=== PATIENT | female | born 1945 | race Caucasian/White ===

== ENCOUNTER → 2023-06-26 10:33 | Day surgery (SDC) | payer MEDICARE, OTHER, SELFPAY ==
--- NOTE | 2023-06-26 14:39 | ITS.CL.CARDI ---
Cosmetic Sales Consultant - Cardioversion
Cardioversion
Procedure Report:
CARDIOVERSION REPORT
DATE: June 26, 2023
Primary Care Provider: MALATHI Steve
Primary economics department chair: Dr Elsa Guajardo
INDICATION: Atrial Fibrillation
ANTICOAGULATION: apixaban
ANESTHESIA:
Deep sedation was administered (Propofol) and monitored via the Anesthesia department.
CARDIOVERSION:
Once sedation was determined to be adequate, a biphasic shock was delivered with external pads placed in an A-P position.
Attempt # 1: 200 J Results: Failed to restore sinus rhythm
Attempt # 2: 360 J Results: Failed to restore sinus rhythm
* Attempt # 3: 360 J Results: SR at a HR of 60 bpm.
*(with external chest pressure)
COMPLICATIONS: None
CONCLUSION: Successful cardioversion of atrial fibrillation to sinus rhythm.
RECOMMENDATION:
Maintain uninterrupted oral anticoagulation
Copy to:
MALATHI Steve
Dr Elsa Guajardo
== END ==
LOC: CATH 10:33
PROVIDERS: ATTENDING PHYSICIAN Nuclear Medicine Nuclear Cardiology; FAMILY PHYSICIAN Nurse Practitioner
DX: I48.0 Paroxysmal atrial fibrillation (principal); I10 Essential (primary) hypertension; E78.5 Hyperlipidemia, unspecified; Z85.3 Personal history of malignant neoplasm of breast; Z79.01 Long term (current) use of anticoagulants
CPT/HCPCS: 92960; 93005

== ENCOUNTER → 2023-07-10 12:12 | Outpatient (REF) | payer MEDICARE, OTHER, SELFPAY | LOC: HWRAD 12:12 | PROVIDERS: ATTENDING PHYSICIAN Nurse Practitioner | DX: R05.9 Cough, unspecified (principal) | CPT/HCPCS: 71046 ==

== ENCOUNTER → 2023-07-31 09:40 | Outpatient (REF) | payer MEDICARE, OTHER, SELFPAY ==
[2023-07-31 11:42] LABS: % Basophils 0.8 % (0-2); % Eosinophils 2.8 % (0-6); % Immature Granulocytes 0.2 % (0-0.5); % Lymphocytes 31.7 % (20.5-51.1); % Monocytes 8.6 % (1.7-9.3); % Neutrophils 55.9 % (42.2-75.2); Absolute Eosinophils 0.1 10^3/uL (0-0.7); Absolute Lymphocytes 1.6 10^3/uL (1.2-3.4); Absolute Monocytes 0.4 10^3/uL (0.1-0.6); Absolute Neutrophils 2.8 10^3/uL (1.4-6.5); Hematocrit 39.2 % (37.0-47.0); Hemoglobin 12.7 g/dL (12.0-16.0); Mean Corp Hgb Conc. 32.4 g/dL (33.0-37.0); Mean Corpuscular Hgb 27.5 pg (27.0-31.0); Mean Platelet Volume 9.9 fL (7.4-10.4); Nucleated Red Blood Cells % 0 %; Platelet Count 275 10^3/uL (130-400); Red Blood Cell Count 4.61 10^6/uL (4.20-5.40)
[2023-07-31 12:06] LABS: ALT (SGPT) 14 U/L (0-35); AST (SGOT) 22 U/L (14-36); Albumin 3.7 g/dl (3.5-5.0); Alkaline Phosphatase 115 U/L (38-126); Blood Urea Nitrogen 16 mg/dl (7-17); Calcium 9.6 mg/dl (8.4-10.2); Carbon Dioxide 26 mmol/L (22-30); Chloride 107 mmol/L (98-107); Glucose 97 mg/dl (70-99); Potassium 3.6 mmol/L (3.5-5.1); Sodium 139 mmol/L (135-145); Total Bilirubin 0.4 mg/dl (0.2-1.3); Total Protein 6.5 g/dl (6.3-8.2); eGFR 56.95
[2023-07-31 12:37] LABS: TSH Reflex To Free T4 2.22 uIU/ml (0.47-4.68)
[2023-07-31 15:17] LABS: Urine Albumin Trace (Neg - Trace); Urine Bilirubin Negative (Negative); Urine Character Clear (Clear); Urine Color Yellow; Urine Glucose Negative (Negative); Urine Ketone Negative (Negative); Urine Leukocyte 2+ (Negative); Urine Nitrite Negative (Negative); Urine Occult Blood 4+ (Negative); Urine Specific Gravity 1.005 (<1.030); Urine Urobilinogen Negative (Neg - 1+); Urine pH 6.5 (5.0-9.0)
[2023-07-31 15:23] LABS: Urine Bacteria Few (Negative); Urine Red Blood Cell 16-20 /HPF (0-2)
== END ==
LOC: HWLAB 09:40
PROVIDERS: ATTENDING PHYSICIAN Nurse Practitioner
DX: R41.3 Other amnesia (principal); R53.83 Other fatigue; R61 Generalized hyperhidrosis
CPT/HCPCS: 36415; 80053; 81003; 81015; 84443; 85025; 87077; 87086; 87186

== ENCOUNTER 2023-08-14 18:12 | Emergency (ER) | payer MEDICARE, OTHER, SELFPAY ==
[2023-08-14 18:12] VITALS: BMI 21.0
[2023-08-14 18:19] VITALS: BP 111/85
[2023-08-14 18:35] LABS: Urine Albumin Trace (Neg - Trace); Urine Bilirubin Negative (Negative); Urine Character Slightly Cloudy (Clear); Urine Color Yellow; Urine Glucose Negative (Negative); Urine Ketone 1+ (Negative); Urine Leukocyte 2+ (Negative); Urine Nitrite Negative (Negative); Urine Occult Blood 4+ (Negative); Urine Specific Gravity 1.015 (<1.030); Urine Urobilinogen Negative (Neg - 1+)
[2023-08-14 18:44] LABS: Urine Bacteria Moderate (Negative); Urine Red Blood Cell 50-60 /HPF (0-2)
--- NOTE | 2023-08-14 19:10 | ED.GENMED ---
History of Present Illness
General
Chief Complaint: Urinary Symptoms
Source: patient
Exam Limitations: none
Time Seen by Provider: 08/14/23 18:55
Travel History
Have you had any contact with someone who has COVID-19?: No
Do you have any symptoms of coronavirus? Fever > 100 degrees, chills, cough, shortness of breath, sore throat, loss of taste or smell, muscle aches, or headache?: No
History of Present Illness
History of Present Illness:
See MDM
Past History
Past History
ED Past Medical History: Arrthythmia (SVT, Atrial fib), Cancer, HTN, Hypercholesterolemia, Other (Kidney stones, degenerative joint disease, breast cancer treated with lumpectomy and radiation, hepatitis B, TIA) and Other ( PFO, glaucoma,
cataracts, vertigo)
ED Past Surgical History: Other
Social History
Tobacco: Non-smoker
Alcohol: Occasional
Drug: None
Personal: Partner ( male partner for 20+ years)
Living: with family
Employment: Retired
Phy Exam
Physical Exam
Physical Exam:
See MDM
Course
Orders/Labs/Results
Orders:
Orders
08/14/23 18:27
Urinalysis Reflex To Culture Urgent
Date Specimen was Collected: 08/14/23
Time Specimen was Collected: 18:22
Urine Microscopic Reflex Cult Urgent
Urine Culture Urgent
JERRY Source: U
Specimen Description:
Date Specimen was Collected: 08/14/23
Time Specimen was Collected: 18:22
08/14/23 19:08
0.9% Sodium Chloride 1000 ml [Nss] 1,000 ml IV BOLUS
08/14/23 19:28
Complete Blood Count/With Diff Urgent
Comprehensive Metabolic Panel Urgent
08/14/23 19:57
LevoFLOXacin 250 MG/50 ML [Levaquin] 250 mg in 50 ml IV NOW
Abnormal Lab Results
08/14/23 08/14/23
18:27 19:28
RDW 15.5 H %
(11.5-14.5)
Chloride 108 H mmol/L
(98-107)
BUN 24 H mg/dl
(7-17)
Urine Ketones 1+ A
(Negative)
Ur Occult Blood Reflex 4+ A
(Negative)
Leukocyte Esterase Rfl 2+ A
(Negative)
Urine RBC 50-60 A /HPF
(0-2)
Urine WBC (Reflex) 11-15 A /HPF
(0-5)
Urine Bacteria (Reflex) Moderate A
(Negative)
08/14/23 19:28
08/14/23 19:28
Vital Signs
Initial and Last Documented VS:
Initial Vital Signs
Temp Pulse Resp BP Pulse Ox
98.4 F 61 18 111/85 99
08/14/23 18:19 08/14/23 18:19 08/14/23 18:19 08/14/23 18:19 08/14/23 18:19
Last Documented Vital Signs
Temp Pulse Resp BP Pulse Ox
98.4 F 61 18 111/85 99
08/14/23 18:19 08/14/23 18:19 08/14/23 18:19 08/14/23 18:19 08/14/23 18:19
MDM/Problems Addressed
Differential Diagnosis Includes:
HPI and MDM Narrative:
78-year-old female presenting with increased urinary frequency and burning. Patient believes she has another UTI. Patient states this is somewhat normal for her for recurrent UTIs. She is followed by urology. She did give a urine specimen to her
PCP 2 weeks ago and is unsure if she was treated or not. Patient also believes she might be dehydrated
On exam, she is well-appearing nontoxic. She is a soft and nontender abdomen. She has mild dry mucous membranes. Prior records show urine culture 2 weeks ago showing Enterococcus faecalis with carlson susceptibility.
Patient states she has tolerated Levaquin in the past. Will give dose of Levaquin and obtain basic blood work and IV fluid
Physical exam
General: Well appearing and non-toxic
HEENT: protecting airway. Dry mucous membrane
Neck: appears supple
CV: No evidence of cyanosis
Resp: No accessory muscle use
Abd: Non-distended. Soft and nontender
Extremities: No deformities
Neuro: alert
Psych: Normal affect
Skin: Intact
Problems Addressed including Acute and Chronic Conditions affecting care:
1. Recurrent UTI
Acuity: acute
Prognosis: stable
Details: Given recent antibiogram to Enterococcus faecalis, will start Levaquin
2. Dehydration
Acuity: acute
Prognosis: stable
Details: Will give IV fluids
Updates
8:26 PM patient feeling better and feels comfortable going home
Differential Diagnosis (but not limited to): UTI, dehydration, kidney stone, pyonephritis
Testing considered: CT abdomen/pelvis but shows no abdomen or back pain
Drug therapy (if applicable): OTC meds, please see d/c instruction regarding Rx drugs
Amount and/or Complexity of Data Reviewed
Clinical info obtained from: Patient
External data reviewed: Recent urine culture showing Enterococcus faecalis with carlson susceptibility
Labs I independently reviewed (but not limited to): WBC normal
Radiology: N/A
Pulse Ox: not hypoxic
EKG independently reviewed: N/A
Spring Upholsterer: N/A
Critical Care: N/A
Risk of Complication:
Social Determinants of health: Good social support
Discussed with other providers: N/A
Escalation of Care includes Admit/Obs: After being observed in the Emergency Department, pt stable for discharge.
Occasional wrong word or 'sound a like' substitutions may have occurred due to the inherent limitations of voice recognition software. Read the chart carefully and recognize, using context, where substitutions have occurred.
*Critical Care Note
Total Time (30-74mins, 75-104mins- exclusive of procedures): Not Applicable
ED Attending Note
-
Portions of this chart may have been created with voice recognition software.� Occasional wrong word or��sound alike� substitutions may have occurred due to the inherent limitations of voice recognition software.
Discharge Plan
Departure
Patient Disposition: Home (Routine Discharge)
Date of Disposition: 08/14/23
Time of Disposition: 20:26
Patient with high blood pressure during this ER visit?: No
Discharge Problem:
Recurrent UTI
Instructions: Urinary Tract Infection, Adult (DC)
Prescriptions:
New
levofloxacin 500 mg Tablet
500 mg PO DAILY Qty: 5 0RF
No Action
Eliquis 5 MG tablet
5 mg PO DAILY
atorvastatin 20 mg Tablet
20 mg PO MOWEFR
diltiazem HCl 300 mg Capsule,Extended Release 24hr
300 mg PO DAILY 30 Days Qty: 30 0RF
clonazepam 0.5 mg Tablet
0.5 mg PO DAILY
famotidine 20 mg Tablet
20 mg PO DAILY PRN (Reason: gerd)
Saccharomyces boulardii [Florastor] 250 mg Capsule
500 mg PO DAILY
mirtazapine 7.5 mg Tablet
7.5 mg PO HS
Activity Restrictions/Additional Instructions:
Please return for any worsening symptoms.
You may return at any time if you have further concerns.
Please follow up with your doctor at the first available appointment, preferably this week.
Thank you for choosing [facility].
Interventions
Interventions:
*Risk Screen - Suicide Last Done: 08/14/23 18:19
*General Assessment Last Done: 08/14/23 18:19
*Neglect/Abuse Screening Last Done: 08/14/23 18:19
ED- Fall Risk Assessment Last Done: 08/14/23 18:47
*ED COVID-19 Vaccine History Last Done: 08/14/23 18:47
ED-Female Genitourinary Assessment Last Done: 08/14/23 18:46
Discharge Date and Time
Print Language: SYRIAC
[2023-08-14] MEDS: NSS 1000 IV (19:31)
[2023-08-14 19:43] LABS: % Basophils 0.5 % (0-2); % Eosinophils 2.3 % (0-6); % Immature Granulocytes 0.2 % (0-0.5); % Monocytes 6.7 % (1.7-9.3); % Neutrophils 58.3 % (42.2-75.2); Absolute Eosinophils 0.1 10^3/uL (0-0.7); Absolute Lymphocytes 1.9 10^3/uL (1.2-3.4); Absolute Monocytes 0.4 10^3/uL (0.1-0.6); Absolute Neutrophils 3.5 10^3/uL (1.4-6.5); Hematocrit 40.4 % (37.0-47.0); Hemoglobin 13.5 g/dL (12.0-16.0); Mean Corp Hgb Conc. 33.4 g/dL (33.0-37.0); Mean Corpuscular Hgb 27.8 pg (27.0-31.0); Mean Corpuscular Volume 83.1 fL (81.0-99.0); Nucleated Red Blood Cells % 0 %; Platelet Count 261 10^3/uL (130-400); Red Blood Cell Count 4.86 10^6/uL (4.20-5.40); Red Cell Dist. Width 15.5 % (11.5-14.5)
[2023-08-14 19:54] LABS: ALT (SGPT) 13 U/L (0-35); AST (SGOT) 23 U/L (14-36); Albumin 4.1 g/dl (3.5-5.0); Alkaline Phosphatase 111 U/L (38-126); Blood Urea Nitrogen 24 mg/dl (7-17); Calcium 9.8 mg/dl (8.4-10.2); Carbon Dioxide 24 mmol/L (22-30); Chloride 108 mmol/L (98-107); Estimated Creatinine Clearance 35 ml/min; Glucose 95 mg/dl (70-99); Potassium 3.5 mmol/L (3.5-5.1); Sodium 140 mmol/L (135-145); Total Bilirubin 0.5 mg/dl (0.2-1.3); eGFR 56.95
[2023-08-14] MEDS: LEVAQUIN 50 IV (20:28)
[2023-08-14 21:53] VITALS: BP 151/87
== END 2023-08-14 22:08 | disposition home or self-care (01) ==
LOC: EMR 18:12
PROVIDERS: Emergency Medicine; EMERGENCY PHYSICIAN Student in an Organized Health Care Education/Training Program; FAMILY PHYSICIAN Nurse Practitioner
DX: N39.0 Urinary tract infection, site not specified (principal)
CPT/HCPCS: 99283; 96365; 96361; 80053; 81003; 81015; 85025; 87086

== ENCOUNTER 2023-08-25 13:20 | Emergency (ER) | payer MEDICARE, OTHER, SELFPAY ==
[2023-08-25 13:34] VITALS: BP 120/60
[2023-08-25 14:47] VITALS: BMI 19.3
--- NOTE | 2023-08-25 15:48 | ED.MUSCINJ ---
HPI-Injury
General
Chief Complaint: Musculo-Skeletal Complaint
Source: patient
Exam Limitations: none
Time Seen by Provider: 08/25/23 14:38
Nursing documentation reviewed up to this point in time: agreed with
Travel History
Have you had any contact with someone who has COVID-19?: No
Do you have any symptoms of coronavirus? Fever > 100 degrees, chills, cough, shortness of breath, sore throat, loss of taste or smell, muscle aches, or headache?: No
History of Present Illness-Injury
Is this injury a work related problem?: No
Is pt an associate of [facility]?: No
Initial Injury comments:
Patient to ED wt complaint of pain and swelling to left knee. Known history of DJD to knee. States she was kneeling to clean and swelling started after this. First noticed symptoms on . Brought to ED by spouse for eval.
Past History
Past History
ED Past Medical History: Arrthythmia (SVT, Atrial fib), Cancer, HTN, Hypercholesterolemia, Other (Kidney stones, degenerative joint disease, breast cancer treated with lumpectomy and radiation, hepatitis B, TIA) and Other ( PFO, glaucoma,
cataracts, vertigo)
ED Past Surgical History: Other
Social History
Tobacco: Non-smoker
Alcohol: Occasional
Drug: None
Personal: Partner ( male partner for 20+ years)
Living: with family
Employment: Retired
Review of Systems
Review of Systems
Allergies reviewed?: Yes
All Other Systems: ROS reviewed and negative except as documented in HPI and ROS
Constitutional: Reports no symptoms
Musculoskeletal: Reports joint swelling (pain and swelling to left anterior knee)
Skin: Reports no symptoms
Neurological: Reports no symptoms
Psychiatric: Reports no symptoms
Musculoskeletal Injury Exam
Musculoskeletal Injury Exam
Left Anterior Knee:
Pain with Movement?: Moderate
Tender to palpation?: Moderate
External deformity and angulation?: None
Joint effusion?: Moderate
Contusion?: None
Hematoma-local bleeding into tissue?: None
Strain- Sprain- Tear (Connective tissue injury)?: None
Crepitus with movement?: No
Joint instability?: No
Malalignment/deformity?: No
Range of motion: Limited
Distal skin color and temperature: normal-warm & good color
Capillary Refill: normal
Normal distal neurovascular exam?: Yes
Peripheral Pulses: posterior tibial (left): 3+ and dorsalis pedis (left): 3+
Phy Exam
General Physical Exam
General Presentation: well appearing and mild distress
General age: appears stated age
General Skin: warm and dry
General Habitus: normal
General Mental: alert
Musculoskeletal Exam
Musculoskeletal Exam: neuro vasc intact
Skin Exam
Skin Exam: normal color, warm/dry and no rash
Psychiatric Exam
Psychiatric Exam: normal mood/affect
Injury Course
Orders/Labs/Results
Orders:
Orders
08/25/23 13:39
Knee, Left 4 or More Views [CR Knee - Left 4 Or More View*] Urgent
Comment:
Reason For Exam: pain and swelling
08/25/23 15:08
Body Fluid Crystals Urgent
What is the Body Fluid: joint
Date Specimen was Collected: 08/25/23
Time Specimen was Collected: 15:03
Fluid Culture with Gram Stain Urgent
JERRY Source: Joint Fluid
Specimen Description:
Date Specimen was Collected: 08/25/23
Time Specimen was Collected: 15:03
Procedures
Incision/Drainage/Joint Aspiration
Left Knee:
Anethesia: 1% Lidocaine
Preparation: cleaned with Betadine
Type of procedure: aspiration
Nature of site: other (left knee effusion)
How much fluid was obtained?: number in mls (45ml)
Fluid description: clear
Treatment: bandaid applied
*Radiology
Radiology exam reviewed: radiology read reviewed
*Pulse Oximetry
Patient hypoxic: no
*Critical Care Note
Total Time (30-74mins, 75-104mins- exclusive of procedures): Not Applicable
ED Attending Note
-
Portions of this chart may have been created with voice recognition software.� Occasional wrong word or��sound alike� substitutions may have occurred due to the inherent limitations of voice recognition software.
Discharge Plan
Departure
Patient Disposition: Home (Routine Discharge)
Date of Disposition: 08/25/23
Time of Disposition: 15:02
Patient with high blood pressure during this ER visit?: No
Condition: Good
Discharge Problem:
Effusion of knee
Instructions: Arthrocentesis, Swollen Joints (DC), RICE Therapy
Prescriptions:
No Action
Eliquis 5 MG tablet
5 mg PO DAILY
atorvastatin 20 mg Tablet
20 mg PO MOWEFR
diltiazem HCl 300 mg Capsule,Extended Release 24hr
300 mg PO DAILY 30 Days Qty: 30 0RF
clonazepam 0.5 mg Tablet
0.5 mg PO DAILY
famotidine 20 mg Tablet
20 mg PO DAILY PRN (Reason: gerd)
Saccharomyces boulardii [Florastor] 250 mg Capsule
500 mg PO DAILY
mirtazapine 7.5 mg Tablet
7.5 mg PO HS
levofloxacin 500 mg Tablet
500 mg PO DAILY Qty: 5 0RF
Referrals:
Kev Segovia MD [Active] - Call in 1-3 days for appt
Interventions
Interventions:
*Risk Screen - Suicide Last Done: 08/25/23 14:47
*General Assessment Last Done: 08/25/23 14:47
*Neglect/Abuse Screening Last Done: 08/25/23 14:47
ED- Fall Risk Assessment Last Done: 08/25/23 14:49
*ED COVID-19 Vaccine History Last Done: 08/25/23 14:47
ED-Musculoskeletal Assessment Last Done: 08/25/23 14:49
Discharge Date and Time
Print Language: MALTESE
[2023-08-25 15:52] VITALS: BP 118/60
== END 2023-08-25 15:53 | disposition home or self-care (01) ==
LOC: EMR 13:20
PROVIDERS: Nurse Practitioner; EMERGENCY PHYSICIAN Emergency Medicine; FAMILY PHYSICIAN Nurse Practitioner
DX: M25.462 Effusion, left knee (principal)
CPT/HCPCS: 99284; 20610; 73564; 87015; 87070; 87205; 89060

== ENCOUNTER → 2023-10-09 10:04 | Outpatient (REF) | payer MEDICARE, OTHER, SELFPAY ==
[2023-10-09 12:11] LABS: ALT (SGPT) 22 U/L (0-35); AST (SGOT) 30 U/L (14-36); Alkaline Phosphatase 96 U/L (38-126); Blood Urea Nitrogen 21 mg/dl (7-17); Calcium 9.4 mg/dl (8.4-10.2); Carbon Dioxide 30 mmol/L (22-30); Chloride 106 mmol/L (98-107); Glucose 94 mg/dl (70-99); HDL Cholesterol 83 mg/dl; LDL Cholesterol, Calculated 75 mg/dl; Potassium 3.9 mmol/L (3.5-5.1); Sodium 143 mmol/L (135-145); Total Bilirubin 0.5 mg/dl (0.2-1.3); Total Cholesterol 177 mg/dl (50-199); Total Protein 6.3 g/dl (6.3-8.2); Triglyceride 99 mg/dl (10-149); Very Low Density Lipoprotein 19 mg/dl (0-30); eGFR > 60.00
== END ==
LOC: HWLAB 10:04
PROVIDERS: ATTENDING PHYSICIAN Nurse Practitioner
DX: E78.2 Mixed hyperlipidemia (principal); I10 Essential (primary) hypertension
CPT/HCPCS: 36415; 80053; 80061

== ENCOUNTER 2023-11-10 13:53 | Emergency (ER) | payer MEDICARE, OTHER, SELFPAY ==
[2023-11-10 14:01] VITALS: BP 142/75
[2023-11-10 14:27] LABS: % Basophils 0.5 % (0-2); % Eosinophils 1.7 % (0-6); % Immature Granulocytes 0.2 % (0-0.5); % Lymphocytes 24.5 % (20.5-51.1); % Monocytes 7.3 % (1.7-9.3); % Neutrophils 65.8 % (42.2-75.2); Absolute Eosinophils 0.1 10^3/uL (0-0.7); Absolute Lymphocytes 1.4 10^3/uL (1.2-3.4); Absolute Monocytes 0.4 10^3/uL (0.1-0.6); Absolute Neutrophils 3.8 10^3/uL (1.4-6.5); Hematocrit 39.4 % (37.0-47.0); Hemoglobin 13.3 g/dL (12.0-16.0); Mean Corp Hgb Conc. 33.8 g/dL (33.0-37.0); Mean Corpuscular Hgb 29.1 pg (27.0-31.0); Mean Corpuscular Volume 86.2 fL (81.0-99.0); Mean Platelet Volume 9.8 fL (7.4-10.4); Nucleated Red Blood Cells % 0 %; Platelet Count 232 10^3/uL (130-400); Red Blood Cell Count 4.57 10^6/uL (4.20-5.40); Red Cell Dist. Width 13.6 % (11.5-14.5); White Blood Cell Count 5.8 10^3/uL (4.8-10.8)
[2023-11-10 14:30] LABS: Urine Albumin Negative (Neg - Trace); Urine Bilirubin Negative (Negative); Urine Character Clear (Clear); Urine Color Yellow; Urine Glucose Negative (Negative); Urine Ketone Negative (Negative); Urine Leukocyte 2+ (Negative); Urine Nitrite Negative (Negative); Urine Occult Blood 1+ (Negative); Urine Specific Gravity 1.005 (<1.030); Urine Urobilinogen Negative (Neg - 1+); Urine pH 6.5 (5.0-9.0)
[2023-11-10 14:43] LABS: ALT (SGPT) 19 U/L (0-35); AST (SGOT) 30 U/L (14-36); Albumin 4.1 g/dl (3.5-5.0); Alkaline Phosphatase 95 U/L (38-126); Blood Urea Nitrogen 21 mg/dl (7-17); Calcium 9.9 mg/dl (8.4-10.2); Carbon Dioxide 26 mmol/L (22-30); Chloride 108 mmol/L (98-107); Glucose 97 mg/dl (70-99); Potassium 4.1 mmol/L (3.5-5.1); Sodium 138 mmol/L (135-145); Total Bilirubin 0.4 mg/dl (0.2-1.3); Total Protein 6.4 g/dl (6.3-8.2); eGFR > 60.00
[2023-11-10 14:53] LABS: Urine Mucus Few
[2023-11-10 14:56] LABS: Urine Bacteria Few (Negative); Urine White Cell 26-30 /HPF (0-5)
[2023-11-10 15:12] LABS: TSH 1.26 uIU/ml (0.47-4.68)
[2023-11-10 15:54] VITALS: BP 154/93
[2023-11-10 16:00] VITALS: BP 136/80
[2023-11-10 16:19] VITALS: BMI 20.6
[2023-11-10 16:21] VITALS: BP 136/80
--- NOTE | 2023-11-10 16:54 | ED.GENMED ---
History of Present Illness
<Christine Gutierrez MD, Resident - Last Filed: 11/10/23 17:03>
General
Chief Complaint: Dizziness
Time Seen by Provider: 11/10/23 16:07
History of Present Illness
History of Present Illness:
78-year-old female presents today with dizzy spells. Patient describes it as nonpositional, happens abruptly out of the blue. She denies any headache, neck pain, blurry vision, room spinning. Patient states that this feeling of dizziness has been
ongoing for around less than 6 months. She also started wearing new glasses for the past 2 months. She states that could be the new glasses which might be causing the dizzy spells. She also reports of 'shakiness'. She denies any falls, recent
trauma.
Past History
<Christine Gutierrez MD, Resident - Last Filed: 11/10/23 17:03>
Past History
ED Past Medical History: Arrthythmia (SVT, Atrial fib), Cancer, HTN, Hypercholesterolemia, Other (Kidney stones, degenerative joint disease, breast cancer treated with lumpectomy and radiation, hepatitis B, TIA) and Other ( PFO, glaucoma,
cataracts, vertigo)
ED Past Surgical History: Other
Social History
Tobacco: Non-smoker
Alcohol: Occasional
Drug: None
Personal: Partner ( male partner for 20+ years)
Living: with family
Employment: Retired
Review of Systems
<Christine Gutierrez MD, Resident - Last Filed: 11/10/23 17:03>
Review of Systems
Neurological: Reports dizzy
Phy Exam
<Christine Gutierrez MD, Resident - Last Filed: 11/10/23 17:03>
Physical Exam
Physical Exam:
sitting comfortably in bed, conversant, in no distress
General Physical Exam
General Presentation: well appearing and no apparent distress
ENT Exam
ENT Exam: EOMI
Eye Exam
Eye Exam: PERRL
Cardiovascular Exam
Cardiovascular Exam: regular rate/rhythm
Pulmonary Exam
Pulmonary Exam: lungs clear
Neurological Exam
Neurological Exam: alert, oriented x3, no motor deficits, no sensory deficits and other (normal finger nose testing )
Course
<Christine Gutierrez MD, Resident - Last Filed: 11/10/23 17:03>
Orders/Labs/Results
Orders:
Orders
11/10/23 14:04
ECG [Electrocardiogram (*1)] Urgent
Reason for Study: Vertigo / Dizzy
11/10/23 14:05
EKG- Treatment ONCE
11/10/23 14:11
Complete Blood Count/With Diff Urgent
Comprehensive Metabolic Panel Urgent
Magnesium Urgent
TSH Urgent
Urinalysis Reflex To Culture Urgent
Date Specimen was Collected: 11/10/23
Time Specimen was Collected: 14:05
Urine Microscopic Reflex Cult Urgent
Urine Culture Urgent
JERRY Source: U
Specimen Description:
Date Specimen was Collected: 11/10/23
Time Specimen was Collected: 14:05
11/10/23 16:54
Fosfomycin [Monurol] 3 gm PO ONCE ONE
Abnormal Lab Results
11/10/23
14:11
Chloride 108 H mmol/L
(98-107)
BUN 21 H mg/dl
(7-17)
Ur Occult Blood Reflex 1+ A
(Negative)
Leukocyte Esterase Rfl 2+ A
(Negative)
Urine RBC 7-10 A /HPF
(0-2)
Urine WBC (Reflex) 26-30 A /HPF
(0-5)
Urine Bacteria (Reflex) Few A
(Negative)
11/10/23 14:11
11/10/23 14:11
Vital Signs
Initial and Last Documented VS:
Initial Vital Signs
Temp Pulse Resp BP Pulse Ox
97.8 F 66 18 142/75 97
11/10/23 14:01 11/10/23 14:01 11/10/23 14:01 11/10/23 14:01 11/10/23 14:01
Last Documented Vital Signs
Temp Pulse Resp BP Pulse Ox
97.8 F 74 17 136/80 98
11/10/23 14:01 11/10/23 16:21 11/10/23 16:21 11/10/23 16:21 11/10/23 16:21
<Gabriel Sweeney, DO - Last Filed: 11/10/23 16:59>
Orders/Labs/Results
Orders:
Orders
11/10/23 14:04
ECG [Electrocardiogram (*1)] Urgent
Reason for Study: Vertigo / Dizzy
11/10/23 14:05
EKG- Treatment ONCE
11/10/23 14:11
Complete Blood Count/With Diff Urgent
Comprehensive Metabolic Panel Urgent
Magnesium Urgent
TSH Urgent
Urinalysis Reflex To Culture Urgent
Date Specimen was Collected: 11/10/23
Time Specimen was Collected: 14:05
Urine Microscopic Reflex Cult Urgent
Urine Culture Urgent
JERRY Source: U
Specimen Description:
Date Specimen was Collected: 11/10/23
Time Specimen was Collected: 14:05
11/10/23 16:54
Fosfomycin [Monurol] 3 gm PO ONCE ONE
Abnormal Lab Results
11/10/23
14:11
Chloride 108 H mmol/L
(98-107)
BUN 21 H mg/dl
(7-17)
Ur Occult Blood Reflex 1+ A
(Negative)
Leukocyte Esterase Rfl 2+ A
(Negative)
Urine RBC 7-10 A /HPF
(0-2)
Urine WBC (Reflex) 26-30 A /HPF
(0-5)
Urine Bacteria (Reflex) Few A
(Negative)
11/10/23 14:11
11/10/23 14:11
Vital Signs
Initial and Last Documented VS:
Initial Vital Signs
Temp Pulse Resp BP Pulse Ox
97.8 F 66 18 142/75 97
11/10/23 14:01 11/10/23 14:01 11/10/23 14:01 11/10/23 14:01 11/10/23 14:01
Last Documented Vital Signs
Temp Pulse Resp BP Pulse Ox
97.8 F 74 17 136/80 98
11/10/23 14:01 11/10/23 16:21 11/10/23 16:21 11/10/23 16:21 11/10/23 16:21
<Christine Gutierrez MD, Resident - Last Filed: 11/10/23 17:03>
*Critical Care Note
Total Time (30-74mins, 75-104mins- exclusive of procedures): Not Applicable
<Christine Gutierrez MD, Resident - Last Filed: 11/10/23 17:03>
Update Note
Update Note:
78-year-old female presented today with dizzy spell. Laboratory evaluation unremarkable. Physical exam is reassuring. UA looks suspicious for asymptomatic bacteriuria. We are treating the patient with fosfomycin one-time treatment 1 dose today.
She denies any dysuria, hematuria, hematochezia. Patient vitals are stable. Plan is to discharge patient as she looks stable and her exams are reassuring. Patient can follow-up with her primary care physicians and parimutuel cashier. No chest pain,
shortness of breath, headache, vomiting.
ED Attending Note
<Christine Gutierrez MD, Resident - Last Filed: 11/10/23 17:03>
-
Portions of this chart may have been created with voice recognition software.� Occasional wrong word or��sound alike� substitutions may have occurred due to the inherent limitations of voice recognition software.
<Gabriel Sweeney, DO - Last Filed: 11/10/23 16:59>
ED Attending Note
Patient seen and examined by attending physician: Yes
I performed a history and physical exam of patient and discussed management with resident, I reviewed resident's note and agree with documented findings and plan of care.: Yes
ED Attending Note:
I have seen and evaluated the patient with a [id number] encounter. I have spoken to the resident and involved in the medical history, the physical exam, medical decision making.
Evaluation and management service: agree unless noted differently below.
Results interpretation: agree unless noted differently below.
Focused HPI: 78-year-old female presenting with intermittent dizziness. Patient denies chest pain, shortness of breath or weakness.
Physical exam: Sitting bed comfortably. Normal finger-nose. Heart regular in rhythm. Extremely well-appearing and nontoxic
Medical Decision Making: Lab work without clinical significance. She does have bacturia. Will give dose of Monurol. Upon further questioning, patient believes this is related to her new prescription glasses. Every time she puts them on, she
feels a dizziness sensation. Discussed having this reevaluated by her PCP and parimutuel cashier
Discharge Plan
Departure
Patient Disposition: Home (Routine Discharge)
Date of Disposition: 11/10/23
Time of Disposition: 16:57
Patient with high blood pressure during this ER visit?: No
Discharge Problem:
Dizziness
Prescriptions:
No Action
Eliquis 5 MG tablet
5 mg PO DAILY
atorvastatin 20 mg Tablet
20 mg PO MOWEFR
diltiazem HCl 300 mg Capsule,Extended Release 24hr
300 mg PO DAILY 30 Days Qty: 30 0RF
clonazepam 0.5 mg Tablet
0.5 mg PO DAILY
famotidine 20 mg Tablet
20 mg PO DAILY PRN (Reason: gerd)
Saccharomyces boulardii [Florastor] 250 mg Capsule
500 mg PO DAILY
mirtazapine 7.5 mg Tablet
7.5 mg PO HS
levofloxacin 500 mg Tablet
500 mg PO DAILY Qty: 5 0RF
Interventions
Interventions:
*Risk Screen - Suicide Last Done: 11/10/23 14:01
*General Assessment Last Done: 11/10/23 14:01
*Neglect/Abuse Screening Last Done: 11/10/23 14:01
ED- Fall Risk Assessment Last Done: 11/10/23 16:22
*ED COVID-19 Vaccine History Last Done: 11/10/23 16:22
ED- Neurological Assessment Last Done: 11/10/23 16:22
ED- Cardiac Assessment Last Done: 11/10/23 16:22
Discharge Date and Time
Print Language: BRUNEIAN
[2023-11-10] MEDS: MONUROL 3 GM PO (17:45)
[2023-11-10 18:28] VITALS: BP 136/80
== END 2023-11-10 18:30 | disposition home or self-care (01) ==
LOC: EMR 13:53
PROVIDERS: Emergency Medicine; EMERGENCY PHYSICIAN Student in an Organized Health Care Education/Training Program; FAMILY PHYSICIAN Nurse Practitioner
DX: R42 Dizziness and giddiness (principal)
CPT/HCPCS: 99284; 80053; 81003; 81015; 83735; 84443; 85025; 87086; 93005

== ENCOUNTER → 2023-11-28 12:18 | Outpatient (REF) | payer MEDICARE, OTHER, SELFPAY ==
[2023-11-28 15:55] LABS: Urine Albumin Negative (Neg - Trace); Urine Bilirubin Negative (Negative); Urine Character Clear (Clear); Urine Color Yellow; Urine Glucose Negative (Negative); Urine Ketone Negative (Negative); Urine Leukocyte Trace (Negative); Urine Nitrite Negative (Negative); Urine Occult Blood 4+ (Negative); Urine Urobilinogen Negative (Neg - 1+)
[2023-11-28 16:02] LABS: Urine Squamous Cell 0-2 /LPF (Few)
[2023-11-28 16:04] LABS: Urine Bacteria Few (Negative)
== END ==
LOC: HWLAB 12:18
PROVIDERS: ATTENDING PHYSICIAN Nurse Practitioner; REFERRING PHYSICIAN Specialist
DX: R31.9 Hematuria, unspecified (principal)
CPT/HCPCS: 36415; 81003; 81015

== ENCOUNTER 2024-02-22 10:29 | Emergency (ER) | payer MEDICARE, OTHER, SELFPAY ==
[2024-02-22 10:34] VITALS: BP 144/88
[2024-02-22 11:07] VITALS: BP 146/87
[2024-02-22 11:33] LABS: % Basophils 0.2 % (0-2); % Immature Granulocytes 0.4 % (0-0.5); % Lymphocytes 6.6 % (20.5-51.1); % Monocytes 3.1 % (1.7-9.3); % Neutrophils 89.7 % (42.2-75.2); Absolute Lymphocytes 0.7 10^3/uL (1.2-3.4); Absolute Monocytes 0.3 10^3/uL (0.1-0.6); Absolute Neutrophils 9.8 10^3/uL (1.4-6.5); Hematocrit 43.4 % (37.0-47.0); Hemoglobin 14.6 g/dL (12.0-16.0); Mean Corp Hgb Conc. 33.6 g/dL (33.0-37.0); Mean Corpuscular Hgb 29.4 pg (27.0-31.0); Mean Corpuscular Volume 87.5 fL (81.0-99.0); Mean Platelet Volume 9.6 fL (7.4-10.4); Nucleated Red Blood Cells % 0 %; Platelet Count 225 10^3/uL (130-400); Red Blood Cell Count 4.96 10^6/uL (4.20-5.40); Red Cell Dist. Width 13.6 % (11.5-14.5); White Blood Cell Count 10.9 10^3/uL (4.8-10.8)
[2024-02-22 11:45] LABS: ALT (SGPT) 22 U/L (0-35); AST (SGOT) 28 U/L (14-36); Albumin 4.4 g/dl (3.5-5.0); Alkaline Phosphatase 113 U/L (38-126); Blood Urea Nitrogen 32 mg/dl (7-17); Carbon Dioxide 21 mmol/L (22-30); Chloride 110 mmol/L (98-107); Glucose 142 mg/dl (70-99); Magnesium 1.9 mg/dl (1.6-2.3); Potassium 3.8 mmol/L (3.5-5.1); Sodium 145 mmol/L (135-145); Total Bilirubin 0.6 mg/dl (0.2-1.3); Total Protein 6.9 g/dl (6.3-8.2); eGFR > 60.00
[2024-02-22 11:56] LABS: Troponin I < 0.012 ng/ml
[2024-02-22 12:00] VITALS: BP 138/80
[2024-02-22 12:20] LABS: TSH 0.34 uIU/ml (0.47-4.68)
[2024-02-22 12:24] LABS: Urine Albumin Trace (Neg - Trace); Urine Bilirubin Negative (Negative); Urine Character Clear (Clear); Urine Color Yellow; Urine Glucose Negative (Negative); Urine Ketone Negative (Negative); Urine Leukocyte 1+ (Negative); Urine Nitrite Negative (Negative); Urine Occult Blood 3+ (Negative); Urine Urobilinogen Negative (Neg - 1+); Urine pH 6.5 (5.0-9.0)
--- NOTE | 2024-02-22 12:27 | ED.GENMED ---
History of Present Illness
General
Chief Complaint: Heart Rate Problem
Source: patient and spouse
Time Seen by Provider: 02/22/24 10:59
History of Present Illness
History of Present Illness:
79-year-old female presents after she had 2 nights of sweats at night. The patient states that she otherwise been feeling well but was concerned she was in A-fib because her took her heart rate and he noted to be fast. Patient states she
did recently have a steroid injection in her knee. The patient denies fevers. No chest pain. No syncope. Patient has not taken her morning meds this morning.
Past History
Past History
ED Past Medical History: Arrthythmia (SVT, Atrial fib), Cancer, HTN, Hypercholesterolemia, Other (Kidney stones, degenerative joint disease, breast cancer treated with lumpectomy and radiation, hepatitis B, TIA) and Other ( PFO, glaucoma,
cataracts, vertigo)
ED Past Surgical History: Other
Social History
Tobacco: Non-smoker
Alcohol: Occasional
Drug: None
Personal: Partner ( male partner for 20+ years)
Living: with family
Employment: Retired
Phy Exam
Physical Exam
Physical Exam:
CONSTITUTIONAL Patient alert and oriented to person, place and time. Well-appearing. Vital signs reviewed.
HEAD atraumatic, normocephalic.
EYES eyelids normal to inspection, Extraocular muscles intact, Conjunctiva normal, Sclera normal.
NECK normal range of motion, Trachea midline, no jugular venous distention.
RESPIRATORY CHEST No respiratory distress noted, Chest expansion equal, Bilateral breath sounds clear.
CARDIOVASCULAR regular with ectopy, Heart sounds normal.
ABDOMEN abdomen nontender, Bowel sounds normal. No distention.
BACK normal inspection, no obvious deformities
UPPER EXTREMITY range of motion normal, Motor strength normal, no cyanosis, no edema.
LOWER EXTREMITY range of motion normal, Motor strength normal, no cyanosis, no edema.
NEURO Speech normal, No focal motor deficits, [place] coma scale 15, Memory normal, Cranial Nerves intact to screening exam.
SKIN skin warm, dry, and normal in color.
Course
Orders/Labs/Results
Orders:
Orders
02/22/24 10:46
ECG [Electrocardiogram (*1)] Urgent
Reason for Study: Abnormal EKG
EKG- Treatment ONCE
02/22/24 11:22
Complete Blood Count/With Diff Urgent
Comprehensive Metabolic Panel Urgent
Creatine Phosphokinase Urgent
Comment: ADD ON PER [id number]
Magnesium Urgent
TSH Urgent
Troponin I Urgent
02/22/24 11:30
Add On - Microbiology Urgent
Tests Added?: TSH
02/22/24 12:09
Urinalysis Reflex To Culture Urgent
Date Specimen was Collected: 02/22/24
Time Specimen was Collected: 12:03
Urine Microscopic Reflex Cult Urgent
Urine Culture Urgent
JERRY Source: U
Specimen Description:
Date Specimen was Collected: 02/22/24
Time Specimen was Collected: 12:03
02/22/24 12:32
Add On- LAB Urgent
Tests Added?: CPK
Abnormal Lab Results
02/22/24 02/22/24
11:22 12:09
WBC 10.9 H 10^3/uL
(4.8-10.8)
Absolute Neuts (auto) 9.8 H 10^3/uL
(1.4-6.5)
Absolute Lymphs (auto) 0.7 L 10^3/uL
(1.2-3.4)
Neutrophils % 89.7 H %
(42.2-75.2)
Lymphocytes % 6.6 L %
(20.5-51.1)
Chloride 110 H mmol/L
(98-107)
Carbon Dioxide 21 L mmol/L
(22-30)
BUN 32 H mg/dl
(7-17)
Glucose 142 H mg/dl
(70-99)
TSH 0.34 L uIU/ml
(0.47-4.68)
Ur Occult Blood Reflex 3+ A
(Negative)
Leukocyte Esterase Rfl 1+ A
(Negative)
Urine Bacteria (Reflex) Few A
(Negative)
02/22/24 11:22
02/22/24 11:22
Vital Signs
Initial and Last Documented VS:
Initial Vital Signs
Temp Pulse Resp BP Pulse Ox
98.9 F 91 18 144/88 99
02/22/24 10:34 02/22/24 10:34 02/22/24 10:34 02/22/24 10:34 02/22/24 10:34
Last Documented Vital Signs
Temp Pulse Resp BP Pulse Ox
98.9 F 91 19 138/80 94
02/22/24 10:34 02/22/24 12:45 02/22/24 12:45 02/22/24 12:00 02/22/24 12:45
MDM/Problems Addressed
MDM/Problems Addressed:
Premature atrial contractions, possible medication side effects
*Pulse Oximetry
Patient hypoxic: no
*EKG
Interpreted by ED Provider?: Yes
Interpretation: abnormal
Rate: normal
Rhythm: sinus and PAC's
Interval: first degree heart block
Ischemia: non-specific ST changes
*Key Entry Operator Interpretation
Rate: normal
Interpretation: normal
Rhythm: sinus and PAC's
*Critical Care Note
Total Time (30-74mins, 75-104mins- exclusive of procedures): Not Applicable
Data Reviewed
Review of Other/Old Records Reveals: Operative Reports (Cardioversion report reviewed from June 2023)
Source: patient and spouse
Patient Management
Escalation/DeEscalation of care consider admission/obs:
Patient appears well. Remains in normal sinus rhythm. Has been having some bodyaches that she is going to speak with her doctor about stopping her atorvastatin. Question whether her consolation of symptoms is related to her recent cortisone
injection of her knee. I do think she appears well and is okay for discharge and outpatient follow-up
ED Attending Note
-
Portions of this chart may have been created with voice recognition software.� Occasional wrong word or��sound alike� substitutions may have occurred due to the inherent limitations of voice recognition software.
Discharge Plan
Departure
Patient Disposition: Home (Routine Discharge)
Date of Disposition: 02/22/24
Time of Disposition: 13:30
Patient with high blood pressure during this ER visit?: No
Discharge Problem:
Atrial contractions, premature
Prescriptions:
No Action
Eliquis 5 MG tablet
5 mg PO DAILY
atorvastatin 20 mg Tablet
20 mg PO MOWEFR
diltiazem HCl 300 mg Capsule,Extended Release 24hr
300 mg PO DAILY 30 Days Qty: 30 0RF
clonazepam 0.5 mg Tablet
0.5 mg PO DAILY
famotidine 20 mg Tablet
20 mg PO DAILY PRN (Reason: gerd)
Saccharomyces boulardii [Florastor] 250 mg Capsule
500 mg PO DAILY
mirtazapine 7.5 mg Tablet
7.5 mg PO HS
levofloxacin 500 mg Tablet
500 mg PO DAILY Qty: 5 0RF
Referrals:
NONE,* [Family Provider] -
Activity Restrictions/Additional Instructions:
Premature atrial contractions
Possible medication side effect
Please see your doctor in the next 3 to 5 days for follow-up and reevaluation. Return immediately for worsening symptoms, chest pain, shortness of breath, weakness of any kind or any other concerns.
Interventions
Interventions:
*Risk Screen - Suicide Last Done: 02/22/24 10:34
*General Assessment Last Done: 02/22/24 10:34
*Neglect/Abuse Screening Last Done: 02/22/24 10:34
ED- Cardiac Assessment Last Done: 02/22/24 11:27
ED- Pulmonary Assessment Last Done: 02/22/24 11:27
Discharge Date and Time
Print Language: ALBANIAN
[2024-02-22 12:32] LABS: Urine Bacteria Few (Negative); Urine Red Blood Cell 0-2 /HPF (0-2); Urine Squamous Cell 0-2 /LPF (Few)
[2024-02-22 13:41] LABS: Creatine Phosphokinase 30 U/L (30-135)
[2024-02-22 14:00] VITALS: BP 160/81
== END 2024-02-22 14:10 | disposition home or self-care (01) ==
LOC: EMR 10:29
PROVIDERS: EMERGENCY PHYSICIAN Emergency Medicine
DX: I49.1 Atrial premature depolarization (principal); R61 Generalized hyperhidrosis; I48.91 Unspecified atrial fibrillation; E78.00 Pure hypercholesterolemia, unspecified; I10 Essential (primary) hypertension; M19.90 Unspecified osteoarthritis, unspecified site; Z85.3 Personal history of malignant neoplasm of breast; Z86.73 Personal history of transient ischemic attack (TIA), and cerebral infarction without residual deficits; Z87.442 Personal history of urinary calculi
CPT/HCPCS: 99283; 80053; 81003; 81015; 82550; 83735; 84443; 84484; 85025; 87086; 93005

== ENCOUNTER → 2024-03-05 11:51 | Outpatient (REF) | payer MEDICARE, OTHER, SELFPAY ==
[2024-03-05 15:54] LABS: Free T3 3.23 pg/ml (2.77-5.27); Free T4 1.08 ng/dl (0.78-2.19)
[2024-03-05 16:08] LABS: TSH 0.99 uIU/ml (0.47-4.68)
== END ==
LOC: HWLAB 11:51
PROVIDERS: ATTENDING PHYSICIAN Internal Medicine Cardiovascular Disease; FAMILY PHYSICIAN Internal Medicine
DX: I49.1 Atrial premature depolarization (principal); I48.0 Paroxysmal atrial fibrillation
CPT/HCPCS: 36415; 84439; 84443; 84481

== ENCOUNTER → 2024-05-28 14:55 | Outpatient (REF) | payer MEDICARE, OTHER, SELFPAY | LOC: WDC 14:55 | PROVIDERS: ATTENDING PHYSICIAN Obstetrics & Gynecology Gynecology | DX: Z12.31 Encounter for screening mammogram for malignant neoplasm of breast (principal) | CPT/HCPCS: 77063; 77067 ==

== ENCOUNTER 2024-07-23 21:28 | Emergency (ER) | payer MEDICARE, OTHER, SELFPAY ==
[2024-07-23 21:35] VITALS: BP 163/86
[2024-07-23 21:56] VITALS: BP 128/98
--- NOTE | 2024-07-23 22:17 | ED.GENMED ---
History of Present Illness
General
Chief Complaint: Blood Pressure Problem
Source: patient and significant other
Exam Limitations: none
Time Seen by Provider: 07/23/24 21:44
Nursing documentation reviewed up to this point in time: agreed with
History of Present Illness
History of Present Illness:
Very pleasant 79-year-old female with hypertension on diltiazem 300 a day paroxysmal A-fib on Eliquis, sees Dr. Guajardo, had her left knee drained a week ago felt well afterwards today she had a steroid injection in her knee felt flushed all day,
maybe some indigestion took her blood pressure was 180/100 came in for evaluation denies chest pain denies shortness of breath denies fever chills no nausea or vomiting, blood pressures normalized here without any intervention, tells me she had
Chick-michi-A today preceding her indigestion she denies any pain particularly in her knee where she had an injection
Past History
Past History
ED Past Medical History: Arrthythmia (SVT, Atrial fib), Cancer, HTN, Hypercholesterolemia, Other (Kidney stones, degenerative joint disease, breast cancer treated with lumpectomy and radiation, hepatitis B, TIA) and Other ( PFO, glaucoma,
cataracts, vertigo)
ED Past Surgical History: Other
Social History
Tobacco: Non-smoker
Alcohol: Occasional
Drug: None
Personal: Partner ( male partner for 20+ years)
Living: with family
Employment: Retired
Review of Systems
Review of Systems
All Other Systems: Not applicable
Constitutional: Denies fever or fatigue
EENT: Reports no symptoms
Respiratory: Reports no symptoms
Cardiac: Reports no symptoms
ABD/GI: Reports other (Indigestion after eating Chick-michi-A)
Hematologic/Lymphatic: Reports no symptoms
Psychiatric: Reports no symptoms
Phy Exam
Physical Exam
Physical Exam:
Physical Exam
General: no apparent distress, not acutely ill
Neck: No jaundice
Heart: s1/s2 regular rate and rhythm, no murmur. equal radial pulses.
Lungs: no acute respiratory distress. clear bilaterally
Abdomen: Not tender
Neuro: alert and oriented. no focal neurological deficits
Skin: no rash
Psychiatric: well kept. interactive and cooperative
Extremities: No swelling of the knees, no calf pain
Course
Orders/Labs/Results
Orders:
Orders
07/23/24 21:30
EKG [Electrocardiogram (*1)] Urgent
Reason for Study: Hypertension, Benign
EKG- Treatment ONCE
07/23/24 22:16
Complete Blood Count/With Diff Urgent
Comprehensive Metabolic Panel Urgent
Lipase Urgent
Magnesium Urgent
TSH Urgent
Troponin I Urgent
Abnormal Lab Results
07/23/24
22:16
Absolute Monos (auto) 0.7 H 10^3/uL
(0.1-0.6)
Monocytes % 10.7 H %
(1.7-9.3)
Chloride 110 H mmol/L
(98-107)
BUN 28 H mg/dl
(7-17)
Glucose 111 H mg/dl
(70-99)
Total Protein 6.1 L g/dl
(6.3-8.2)
Lipase 366 H U/L
(23-300)
07/23/24 22:16
07/23/24 22:16
Vital Signs
Initial and Last Documented VS:
Initial Vital Signs
Temp Pulse Resp BP Pulse Ox
98.2 F 82 16 163/86 99
07/23/24 21:35 07/23/24 21:35 07/23/24 21:35 07/23/24 21:35 07/23/24 21:35
Last Documented Vital Signs
Temp Pulse Resp BP Pulse Ox
98.2 F 62 18 128/98 97
07/23/24 21:35 07/23/24 22:45 07/23/24 22:45 07/23/24 21:56 07/23/24 22:45
MDM/Problems Addressed
Differential Diagnosis Includes:
Steroid medication effect anxiety reflux doubt ACS
MDM/Problems Addressed:
Elevated blood pressure which is normal
Chronic conditions affecting care: HTN
Acute Exacerbation and/or Progression of Chronic Illness: HTN
*Pulse Oximetry
Patient hypoxic: no
*EKG
Interpreted by ED Provider?: Yes
Interpretation: normal
Comparison EKG: no comparison EKG present
Heart Rate: 78
Rate: normal
Rhythm: sinus
Ischemia: non-specific ST changes
*Global Compensation Manager Interpretation
Rate: normal
Interpretation: normal
Heart Rate: 78
Rhythm: sinus
*Critical Care Note
Total Time (30-74mins, 75-104mins- exclusive of procedures): Not Applicable
Update Note
Update Note:
Update, patient without any real complaints other than some indigestion, and feeling flushed she did have Chick-michi-A to get a steroid injection, blood pressure is improved without intervention will check a set of electrolytes 1 mat repairer
provide reassurance
11 PM labs noted patient comfortable lipase slightly elevated but not 2 times normal undetectable troponin
ED Attending Note
-
Portions of this chart may have been created with voice recognition software.� Occasional wrong word or��sound alike� substitutions may have occurred due to the inherent limitations of voice recognition software.
Discharge Plan
Departure
Patient Disposition: Home (Routine Discharge)
Date of Disposition: 07/23/24
Time of Disposition: 23:08
Patient with high blood pressure during this ER visit?: Yes
Condition: Good
Discharge Problem:
Essential (primary) hypertension
Instructions: BLOOD PRESSURE
Prescriptions:
No Action
Eliquis 5 MG tablet
5 mg PO DAILY
atorvastatin 20 mg Tablet
20 mg PO MOWEFR
diltiazem HCl 300 mg Capsule,Extended Release 24hr
300 mg PO DAILY 30 Days Qty: 30 0RF
clonazepam 0.5 mg Tablet
0.5 mg PO DAILY
famotidine 20 mg Tablet
20 mg PO DAILY PRN (Reason: gerd)
Saccharomyces boulardii [Florastor] 250 mg Capsule
500 mg PO DAILY
mirtazapine 7.5 mg Tablet
7.5 mg PO HS
levofloxacin 500 mg Tablet
500 mg PO DAILY Qty: 5 0RF
Referrals:
UNKNOWN - PT DOES,NOT KNOW [Unknown Provider] -
Activity Restrictions/Additional Instructions:
Take your blood pressure once in the morning once at night and keep a log of it
Call Dr. Guajardo with your values if they are elevated
Interventions
Interventions:
*Risk Screen - Suicide Last Done: 07/23/24 21:29
*General Assessment Last Done: 07/23/24 22:03
*Neglect/Abuse Screening Last Done: 07/23/24 21:29
*ED- Fall Risk Assessment Last Done: 07/23/24 22:03
*ED COVID-19 Vaccine History Last Done: 07/23/24 22:03
ED- Cardiac Assessment Last Done: 07/23/24 21:53
ED- Neurological Assessment Last Done: 07/23/24 21:53
ED- Pulmonary Assessment Last Done: 07/23/24 21:53
Discharge Date and Time
Print Language: GEORGI[place]
[2024-07-23 22:28] LABS: % Basophils 0.5 % (0-2); % Eosinophils 2.5 % (0-6); % Immature Granulocytes 0.3 % (0-0.5); % Lymphocytes 34.9 % (20.5-51.1); % Monocytes 10.7 % (1.7-9.3); % Neutrophils 51.1 % (42.2-75.2); Absolute Eosinophils 0.2 10^3/uL (0-0.7); Absolute Lymphocytes 2.3 10^3/uL (1.2-3.4); Absolute Monocytes 0.7 10^3/uL (0.1-0.6); Absolute Neutrophils 3.3 10^3/uL (1.4-6.5); Hematocrit 39.6 % (37.0-47.0); Hemoglobin 13.5 g/dL (12.0-16.0); Mean Corp Hgb Conc. 34.1 g/dL (33.0-37.0); Mean Corpuscular Hgb 29.9 pg (27.0-31.0); Mean Corpuscular Volume 87.8 fL (81.0-99.0); Mean Platelet Volume 9.3 fL (7.4-10.4); Nucleated Red Blood Cells % 0 %; Platelet Count 220 10^3/uL (130-400); Red Blood Cell Count 4.51 10^6/uL (4.20-5.40); Red Cell Dist. Width 13.2 % (11.5-14.5); White Blood Cell Count 6.5 10^3/uL (4.8-10.8)
[2024-07-23 22:50] LABS: Troponin I < 0.012 ng/ml
[2024-07-23 22:52] LABS: ALT (SGPT) 30 U/L (0-35); AST (SGOT) 31 U/L (14-36); Albumin 3.7 g/dl (3.5-5.0); Alkaline Phosphatase 105 U/L (38-126); Blood Urea Nitrogen 28 mg/dl (7-17); Calcium 9.4 mg/dl (8.4-10.2); Carbon Dioxide 25 mmol/L (22-30); Chloride 110 mmol/L (98-107); Glucose 111 mg/dl (70-99); Lipase 366 U/L (23-300); Magnesium 2.1 mg/dl (1.6-2.3); Potassium 3.9 mmol/L (3.5-5.1); Sodium 140 mmol/L (135-145); Total Bilirubin 0.4 mg/dl (0.2-1.3); Total Protein 6.1 g/dl (6.3-8.2); eGFR > 60.00
[2024-07-23 23:00] VITALS: BP 128/63
== END 2024-07-23 23:25 | disposition home or self-care (01) ==
LOC: EMR 21:28
PROVIDERS: EMERGENCY PHYSICIAN Emergency Medicine
DX: I10 Essential (primary) hypertension (principal); I48.0 Paroxysmal atrial fibrillation; E78.00 Pure hypercholesterolemia, unspecified; Z79.01 Long term (current) use of anticoagulants; Z85.3 Personal history of malignant neoplasm of breast; Z86.73 Personal history of transient ischemic attack (TIA), and cerebral infarction without residual deficits; Z87.442 Personal history of urinary calculi
CPT/HCPCS: 99283; 80053; 83690; 83735; 84443; 84484; 85025; 93005

== ENCOUNTER → 2024-08-08 09:58 | Outpatient (REF) | payer MEDICARE, OTHER, SELFPAY ==
[2024-08-08 11:45] LABS: % Basophils 0.7 % (0-2); % Eosinophils 2.3 % (0-6); % Immature Granulocytes 0.3 % (0-0.5); % Lymphocytes 27.8 % (20.5-51.1); % Monocytes 9.3 % (1.7-9.3); % Neutrophils 59.6 % (42.2-75.2); Absolute Eosinophils 0.1 10^3/uL (0-0.7); Absolute Lymphocytes 1.6 10^3/uL (1.2-3.4); Absolute Monocytes 0.5 10^3/uL (0.1-0.6); Absolute Neutrophils 3.4 10^3/uL (1.4-6.5); Hematocrit 42.3 % (37.0-47.0); Hemoglobin 14.1 g/dL (12.0-16.0); Mean Corp Hgb Conc. 33.3 g/dL (33.0-37.0); Mean Corpuscular Hgb 30.2 pg (27.0-31.0); Mean Corpuscular Volume 90.6 fL (81.0-99.0); Mean Platelet Volume 9.8 fL (7.4-10.4); Nucleated Red Blood Cells % 0 %; Platelet Count 244 10^3/uL (130-400); Red Blood Cell Count 4.67 10^6/uL (4.20-5.40); Red Cell Dist. Width 13.3 % (11.5-14.5); White Blood Cell Count 5.7 10^3/uL (4.8-10.8)
[2024-08-08 12:03] LABS: Erythrocyte Sed Rate 8 mm/hour (0-20)
[2024-08-08 12:18] LABS: ALT (SGPT) 18 U/L (0-35); AST (SGOT) 26 U/L (14-36); Albumin 4.2 g/dl (3.5-5.0); Alkaline Phosphatase 122 U/L (38-126); Blood Urea Nitrogen 28 mg/dl (7-17); Calcium 9.2 mg/dl (8.4-10.2); Carbon Dioxide 27 mmol/L (22-30); Chloride 108 mmol/L (98-107); Glucose 92 mg/dl (70-99); HDL Cholesterol 96 mg/dl; LDL Cholesterol, Calculated 83 mg/dl; Sodium 143 mmol/L (135-145); Total Cholesterol 190 mg/dl (50-199); Total Protein 6.4 g/dl (6.3-8.2); Triglyceride 59 mg/dl (10-149); Very Low Density Lipoprotein 11 mg/dl (0-30); eGFR > 60.00
[2024-08-08 12:33] LABS: FSH 67.8 mIU/ml
[2024-08-08 12:47] LABS: TSH Reflex To Free T4 1.88 uIU/ml (0.47-4.68)
[2024-08-08 12:51] LABS: C-Reactive Protein < 5.00 mg/L (0.0-10.00)
== END ==
LOC: HWLAB 09:58
DX: I10 Essential (primary) hypertension (principal); E78.2 Mixed hyperlipidemia; I47.10 Supraventricular tachycardia, unspecified; R01.1 Cardiac murmur, unspecified; Z86.73 Personal history of transient ischemic attack (TIA), and cerebral infarction without residual deficits
CPT/HCPCS: 36415; 80053; 80061; 82671; 83001; 83002; 83088; 83520; 83835; 84270; 84402; 84403; 84443; 85025; 85652; 86140; 86430

== ENCOUNTER → 2024-09-26 12:52 | Outpatient (REF) | payer MEDICARE, OTHER, SELFPAY | LOC: HWRAD 12:52 | PROVIDERS: REFERRING PHYSICIAN Internal Medicine Cardiovascular Disease | DX: Z78.0 Asymptomatic menopausal state (principal) | CPT/HCPCS: 77080 ==

== ENCOUNTER → 2024-10-21 10:07 | Outpatient (REF) | payer MEDICARE, OTHER, SELFPAY | LOC: HWRAD 10:07 | PROVIDERS: ATTENDING PHYSICIAN Physician Assistant Surgical | DX: M79.9 Soft tissue disorder, unspecified (principal) | CPT/HCPCS: 73700 ==

== ENCOUNTER → 2024-11-07 10:13 | Outpatient (REF) | payer MEDICARE, OTHER, SELFPAY ==
[2024-11-07 12:23] LABS: Urine Character Cloudy (Clear)
[2024-11-07 12:44] LABS: Urine Red Blood Cell 60-70 /HPF (0-2); Urine Squamous Cell 0-2 /LPF (Few); Urine White Cell 0-2 /HPF (0-5)
== END ==
LOC: HWLAB 10:13
PROVIDERS: ATTENDING PHYSICIAN Specialist
DX: N39.0 Urinary tract infection, site not specified (principal)
CPT/HCPCS: 81003; 81015; 87086

== ENCOUNTER → 2025-02-26 09:18 | Outpatient (REF) | payer MEDICARE, OTHER, SELFPAY ==
[2025-02-26 12:19] LABS: Hematocrit 45.5 % (37.0-47.0); Hemoglobin 14.8 g/dL (12.0-16.0); Mean Corp Hgb Conc. 32.5 g/dL (33.0-37.0); Mean Corpuscular Volume 90.6 fL (81.0-99.0); Nucleated Red Blood Cells % 0 %; Platelet Count 310 10^3/uL (130-400); Red Cell Dist. Width 13.2 % (11.5-14.5)
[2025-02-26 12:27] LABS: Urine Character Slightly Cloudy (Clear)
[2025-02-26 12:57] LABS: ALT (SGPT) 25 U/L (0-35); AST (SGOT) 28 U/L (14-36); Albumin 4.5 g/dl (3.5-5.0); Alkaline Phosphatase 151 U/L (38-126); Blood Urea Nitrogen 23 mg/dl (7-17); Calcium 9.9 mg/dl (8.4-10.2); Carbon Dioxide 22 mmol/L (22-30); Chloride 108 mmol/L (98-107); Glucose 166 mg/dl (70-99); HDL Cholesterol 108 mg/dl; LDL Cholesterol, Calculated 101 mg/dl; Potassium 3.8 mmol/L (3.5-5.1); Sodium 140 mmol/L (135-145); Total Protein 7.3 g/dl (6.3-8.2); Very Low Density Lipoprotein 11 mg/dl (0-30); eGFR > 60.00
[2025-02-26 14:51] LABS: Urine Squamous Cell 21-25 /LPF (Few); Urine Urothelial Cell 0-2 /LPF (FEW)
[2025-02-26 14:52] LABS: Urine Red Blood Cell 70-80 /HPF (0-2)
== END ==
LOC: HWLAB 09:18
DX: R35.0 Frequency of micturition (principal); R31.29 Other microscopic hematuria; F41.9 Anxiety disorder, unspecified; I10 Essential (primary) hypertension; E78.5 Hyperlipidemia, unspecified; I48.0 Paroxysmal atrial fibrillation; K21.9 Gastro-esophageal reflux disease without esophagitis
CPT/HCPCS: 36415; 80053; 80061; 81003; 81015; 84443; 85025; 87077; 87086; 87186